=== PATIENT | male | born 1975 | race Caucasian/White ===

== ENCOUNTER 2016-11-25 14:55 | Emergency (ER) | payer BC ==
--- NOTE | ~2016-11-25 | ER ---
PATIENT'S NAME: LANIE GRIFFITH [facility] AGE: 41 Y [address] ROOM: [place], [place] [address] LOCATION: [facility] ADMIT DATE: 11/25/2016 ER/Outpatient Report DISCHARGE DATE: 11/25/2016 FAMILY PHYSICIAN: , Unknown ATTENDING PHYSICIAN: Philip Tenorio Time of Arrival: 1435 hours. Time of Evaluation: 1435 hours. CHIEF COMPLAINT: Neck injury. HISTORY OF PRESENT ILLNESS: The patient is a 41-year-old male who presents to the emergency department today with a chief complaint of neck injury. He is transferred from [place], [place] via helicopter for higher level of care. 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 The sample grinder wheel broke apart and struck the patient in the chin and then into the right side of his neck. The patient was able to apply pressure and drive to a neighbor's house, who then took him to come to the hospital at [place], [place]. He was transferred here for further evaluation. The patient complains of some moderate pain in his chin and right side of his neck. He reports that did not have en route. He had no other head injuries. No loss of consciousness. Denies any other associated symptoms at this time. No fevers, chills, nausea, vomiting, diarrhea, or constipation. No chest pain. No shortness of breath. PAST MEDICAL HISTORY: Neck pain. PAST SURGICAL HISTORY: Fusion C5-C6. SOCIAL HISTORY: The patient is , has four children. ALLERGIES: NO KNOWN DRUG ALLERGIES. MEDICATIONS: None. REVIEW OF SYSTEMS: All systems are reviewed by myself and negative with the exception of those discussed in HPI and past medical history. PATIENT'S NAME: LANIE GRIFFITH [facility] AGE: 41 Y [address] ROOM: [place], [place] [address] LOCATION: [facility] ADMIT DATE: 11/25/2016 ER/Outpatient Report DISCHARGE DATE: 11/25/2016 FAMILY PHYSICIAN: , Unknown ATTENDING PHYSICIAN: Philip Tenorio PHYSICAL EXAMINATION: VITAL SIGNS: Temperature 97.9, pulse 81, respiratory rate 20, blood pressure 144/97, pulse ox 97. GENERAL: The patient is a 41-year-old male, well developed, well nourished, in mild acute distress. HEENT: Head normocephalic, atraumatic. Pupils are equal, round, and reactive to light and accommodation. Extraocular motions are intact. Nares are patent bilaterally. TMs are clear. No hemotympanum. The patient's chin does have a 7-cm laceration from just past midline on the left to the right side and this is 7.0 cm in length. NECK: The patient does have a 10-cm laceration from just right of midline, with a downward sloping angle towards the right lateral neck. He does go from superficial to deep anterior and posterior region. There is small involvement just into the SCM on the right side, the fascia is noted. There is no obvious arterial or venous bleeding upon my evaluation. CARDIOVASCULAR: Regular rate and rhythm. No murmurs, rubs, or gallops. LUNGS: Clear to auscultation bilaterally. No wheezes, rales, or rhonchi. ABDOMEN: Soft, nontender, and nondistended. No rebound, rigidity, or guarding. MUSCULOSKELETAL: The patient does move all 4 extremities. 5/5 muscle strength. Has normal sensation in the right deltoid and upper extremity, compared to the left. He does have 2/4 pulses all 4 extremities. SKIN: Please see HEENT and neck for lacerations are noted, otherwise, warm and dry. Cap refill is less than 2 seconds. LABORATORY DATA AND X-RAYS: Labs and x-rays are obtained. A CT scan of the face as well as a CT angiogram of the neck is obtained. I have discussed the results with the radiologist. It does show a large laceration of the right neck with involvement into the sternocleidomastoid on the right. There is no major vascular injury. There is no facial or cervical fracture noted. CBC is unremarkable except for white blood cell count 19.9. Coags are normal. CMP is unremarkable. Alcohol is unremarkable. IMPRESSION: 1. Acute deep right neck laceration 10.0 cm requiring 30 sutures with complex repair. 2. Acute 7.0 cm superficial laceration to the chin requiring 18 sutures. 3. Status post grinding wheel accident. 4. Initial visit. EMERGENCY DEPARTMENT COURSE: The patient brought back to the examination room. The patient was made a partial trauma secondary to the mechanism of his injury and reports from PATIENT'S NAME: LANIE GRIFFITH [facility] AGE: 41 Y [address] ROOM: [place], [place] [address] LOCATION: [facility] ADMIT DATE: 11/25/2016 ER/Outpatient Report DISCHARGE DATE: 11/25/2016 FAMILY PHYSICIAN: Physician, Unknown ATTENDING PHYSICIAN: Philip Tenorio of potentially a significant injury to the patient's right side of his neck. The patient was seen and evaluated immediately upon arrival by myself. The patient's neck wound is immediately evaluated and reveals the superficial skin abrasion to the chin as well as a deep laceration to the patient's right side of his neck. It does reveal involvement just into the sternocleidomastoid of the right at the top portion of the SCM. There is minimal bleeding noted upon my initial evaluation. Wound bandages replaced and patient is sent to the CT scan after laboratory analysis was drawn. Angio is obtained and is revealed to have no significant vascular injuries noted. The wound is anesthetized with 1% lidocaine with epinephrine. The wound is copiously irrigated with normal saline. Betadine was also used. The wound is evaluated. I see no obvious vascular injury. There is just a small laceration into the right sternocleidomastoid of fascia is noted. I have discussed the repair with the patient. I have also discussed the case with Dr. Vasquez with Ear, Nose, and Throat. He does agree with the CT angio of the neck and also does request evaluation of axillary never. The patient does appear to have no evidence of injury to the axillary nerve. He will follow the patient up in his clinic for re-evaluation of the patient's wound. The patient's fascia over the sternocleidomastoid is closed with 5-0 Vicryl. The underlying dermis is approximated with a 4-0 Vicryl with good approximation. 5-0 Ethilon is then used to close the undersurface of both the neck wound and the superficial chin wound. This does result in a good cosmesis and good hemostasis. The suturing was accomplished by both myself and assistance from NORMA Alan. The patient did receive a 0.5 mg of Dilaudid IV, was also given 2 g of Ancef for prophylactic antibiotic use. The patient did receive his tetanus booster prior to arrival at [place], [place]. The patient tolerated the procedure well. I have discussed with him and his the potential risks of injury to this region including the potential infection. I have asked that he follows up with Dr. Vasquez in 7 days for both removal of the sutures in re-evaluation the patient's wound. The patient does feel much improved at this time. He is without further questions at this time. DISPOSITION: The patient is discharged to home with his in a good condition with a prescription for Percocet for pain with sedation warning as well as Keflex for prophylactic antibiotics. DO GABINO GASTON/jourdan PATIENT'S NAME: LANIE GRIFFITH [facility] AGE: 41 Y [address] ROOM: [place] [id number] LOCATION: [facility] ADMIT DATE: 11/25/2016 ER/Outpatient Report DISCHARGE DATE: 11/25/2016 FAMILY PHYSICIAN: Physician, Unknown ATTENDING PHYSICIAN: Philip Tenorio /[id number] d: 11/26/[id number] t: 12/04/[id number], OUTPATIENT REPORT
[2016-11-25 15:14] LABS: BASOPHIL # 0.1 K/uL (0.0-0.2); BASOPHIL % 0.3 %; EOSINOPHIL # 0.1 K/uL (0.0-0.5); EOSINOPHIL % 0.7 %; HEMATOCRIT 43.3 % (37.0-53.0); HEMOGLOBIN 14.9 g/dL (12.0-17.0); IMMATURE GRANULOCYTE # 0.1 K/uL (0.0-0.3); IMMATURE GRANULOCYTE % 0.5 %; LYMPHOCYTE # 1.5 K/uL (0.8-4.0); LYMPHOCYTE % 7.5 %; MCH 30.8 pg (27.0-34.0); MCHC 34.4 gm/dL (32.0-36.5); MCV 89.5 fl (83.0-98.0); MONOCYTE # 0.6 K/uL (0.0-1.0); MONOCYTE % 2.9 %; MPV 11.1 fl (9.4-12.4); NEUTROPHIL # (ANC) 17.5 K/uL (1.4-9.0); NEUTROPHIL % 88.1 %; NRBC % 0 /100WBC (0-0.00); PLATELET COUNT 205 K/uL (150-450); RBC 4.84 M/uL (4.00-6.00); RDW-CV 12.1 % (11.9-14.6); WBC 19.9 K/uL (4.0-11.0)
[2016-11-25 15:23] LABS: PROTIME 10.7 SECONDS (9.6-11.1); PTT 26 SECONDS (25-32)
[2016-11-25 15:27] LABS: ALBUMIN 4.4 gm/dL (3.5-5.0); ANION GAP 11.8 (10.0-19.0); BLOOD UREA NITROGEN 16 mg/dL (6-24); CALCIUM 8.8 mg/dL (8.5-10.5); CHLORIDE 103 mMol/L (96-110); CO2 29 mMol/L (22-32); ESTIMATED GFR (MDRD EQUATION) > 60; PHOSPHORUS 2.9 mg/dL (2.5-4.9); POTASSIUM 3.8 mMol/L (3.7-5.1); SODIUM 140 mMol/L (135-145)
== END 2016-11-25 19:09 | disposition disaster alternative care site (69) ==
LOC: GACC 14:55
PROVIDERS: Emergency Medicine
PROC: 0HQ1XZZ Repair Face Skin, External Approach (ICD-10-PCS; principal; 2016-11-25)
PROC: 0HQ4XZZ Repair Neck Skin, External Approach (ICD-10-PCS; 2016-11-25)
DX: S11.91XA Laceration without foreign body of unspecified part of neck, initial encounter (principal); S01.81XA Laceration without foreign body of other part of head, initial encounter; Z98.1 Arthrodesis status; W31.89XA Contact with other specified machinery, initial encounter
CPT/HCPCS: G0480; J0690; J1170; Q9967

== ENCOUNTER → 2016-11-25 | Outpatient (CLI) | payer BC | END | disposition disaster alternative care site (69) | LOC: GAIR 14:14 | DX: S19.9XXA Unspecified injury of neck, initial encounter (principal); W31.89XA Contact with other specified machinery, initial encounter | CPT/HCPCS: A0422; A0431; A0436 ==